=== PATIENT | female | born 1985 | race Caucasian/White ===

== ENCOUNTER 2018-04-11 22:33 | Inpatient (IN) | payer SELFPAY ==
[~2018-04-11] VITALS: Ht 170.2 cm; Wt 72.6 kg
[2018-04-11 22:34] VITALS: BP 132/77
--- NOTE | 2018-04-11 22:34 | NUR ---
PERSON WHO DROPPED PT OFF LISA COLLIER [phone]
--- NOTE | 2018-04-11 22:34 | NUR ---
DROPPED OFF IN LOBBY BY FRIEND. PT WHEEL CHAIR ASSISTED TO BED 10 FROM LOBBY. DIAPHORETIC, A&Ox2 (NAME AND INCIDENT). NURSING STAFF AND DR LARSON AT BEDSIDE FOR EVALUATION.
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
--- NOTE | 2018-04-11 22:41 | NUR ---
ADMITS TO MARIJUANA USE AND METH USE
[2018-04-11] MEDS ORDERED: NACL 0.9% 1,000 ML IV ONE (22:50)
[2018-04-11 23:02] LABS: BASOPHILS % (AUTO) 0.3 % (0.0-2.0); EOSINOPHILS # (AUTO) 0.2 K/uL (0-0.4); EOSINOPHILS % (AUTO) 2.5 % (0.0-4.0); HEMATOCRIT 37.5 % (36-48); HEMOGLOBIN 12.2 g/dL (12.0-16.0); LYMPHOCYTES # (AUTO) 3.5 K/uL (2.5-16.5); LYMPHOCYTES % (AUTO) 44.6 % (20.5-51.1); MEAN CORPUSCULAR HEMOGLOBIN 28 pg (27-31); MEAN CORPUSCULAR HGB CONC 33 g/dL (33-37); MEAN CORPUSCULAR VOLUME 86.9 fL (80-94); MONOCYTES # (AUTO) 0.8 K/uL (0.8-1.0); MONOCYTES % (AUTO) 10.5 % (1.7-9.3); NEUTROPHILS # (AUTO) 3.3 K/uL (1.8-7.7); NEUTROPHILS % (AUTO) 42.1 % (42.2-75.2); PLATELET COUNT (AUTO) 296 K/uL (140-450); RED BLOOD CELL COUNT(AUTO) 4.31 MIL/uL (4.20-5.40); WHITE BLOOD COUNT (AUTO) 7.8 K/uL (4.8-10.8)
[2018-04-11 23:15] LABS: BARBITURATE, URINE NEG. ng/ml (NEG <=200); BENZODIAZEPINE, URINE NEG. ng/mL (NEG <=200); CANNABINOID, URINE POS. ng/mL (NEG <=50); COCAINE, URINE NEG. ng/mL (NEG <=300); OPIATE, URINE NEG. ng/mL (NEG <=2000); PHENCYCLIDINE SCREEN,URINE NEG. ng/mL (NEG <=25)
[2018-04-11 23:17] LABS: ANION GAP 10.9 (8-16); CARBON DIOXIDE 28.3 mmol/L (21-32); CHLORIDE 105 mmol/L (98-107); CREATININE 0.8 mg/dL (0.6-1.3); GFR ARICAN-AMERICAN 108 mL/min (>90); GLUCOSE 146 mg/dL (74-106); POTASSIUM 3.2 mmol/L (3.5-5.1); SODIUM SERUM 141 mmol/L (136-145); UREA NITROGEN, BLOOD 12 mg/dL (7-18)
--- NOTE | 2018-04-11 23:19 | NUR ---
PT SLEEPING COMFORTABLY, AROUSABLE TO TOUCH, REMAINS LETHARGIC. VSS, SPO2 100% ON O2 2L NC, RR 17. ALL NEEDS MET.
[2018-04-11 23:23] LABS: ACETAMINOPHEN < 0.5 ug/ml (10-30); ALBUMIN 4.2 g/dL (3.4-5.0); ASPARTATE AMINOTRANSFERASE 26 U/L (15-37); SALICYLATE < 2.8 mg/dL (2.8-20.0); TOTAL BILIRUBIN 0.3 mg/dL (0.0-1.0)
[2018-04-12] MEDS ORDERED: ZOLPIDEM 5 MG TAB PO PRN (00:25)
[2018-04-12] MEDS ORDERED: ACETAMINOPHEN 325 MG TAB PO PRN (00:25)
[2018-04-12] MEDS ORDERED: ONDANSETRON 4 MG/2 ML VIAL IVP PRN (00:25)
--- NOTE | 2018-04-12 00:35 | NUR ---
PT SLEEPING COMFORTABLY, AROUSABLE TO TOUCH. VSS. ALL NEEDS MET.
[2018-04-12] MEDS ORDERED: LORazepam 2 MG/ML VIAL IVP PRN (00:40)
[2018-04-12 00:47] LABS: APPEARANCE,URINE CLEAR (CLEAR); BILIRUBIN,URINE NEGATIVE (NEGATIVE); BLOOD, URINE NEGATIVE (NEGATIVE); COLOR,URINE YELLOW (YELLOW); LEUKOCYTE ESTERASE ,URINE NEGATIVE (NEGATIVE); NITRITE, URINE NEGATIVE (NEGATIVE); UGLUCOSE NEGATIVE (NEGATIVE)
[2018-04-12 00:59] LABS: PROTHROMBIN TIME 10.8 secs (10.8-13.4)
[2018-04-12] MEDS ORDERED: POTASSIUM CHLORIDE 10 MEQ TABER PO SCH (01:00)
[2018-04-12] MEDS ORDERED: NACL 0.9% 1,000 ML IV SCH (01:00)
--- NOTE | 2018-04-12 01:00 | NUR ---
Patient will be admitted to care of DR. WEST. Admited to TELE. Will go to room 106B. Belongings list completed. Report to SANAZ HALLMAN.
[2018-04-12 01:02] LABS: RBC,URINE 0-5 (RARE) /HPF (0-5); WBC,URINE 0-5 (RARE) /HPF (0-5)
[2018-04-12 01:15] VITALS: BP 154/94
--- NOTE | 2018-04-12 01:15 | NUR ---
RECEIVED PT FROM ER NURSE AXES, PT ALERT AND AWAKE, ABLE TO MAKE NEEDS KNOWN, PT AMBULATED FROM GURNEY TO BED, STEADY GAIT, ON ROOM AIR B/P 154/94, HR 77, RR 16, TEMP 98.2, O2 SAT 100% ROOM AIR, NO C/O PAIN, DR REYES AWARE. PT REQUESTED TO HAVE WATER, OFFERED WATER AND SANDWICH TO EAT. MRSA SCREEN TAKEN, UPDATED BOARD EXPLAINED PLAN OF CARE, WILL CONTINUE TO MONITOR.
[2018-04-12 01:18] LABS: FREE T4 (FREE THYROXINE) 1.03 ng/dL (0.76-1.46); MAGNESIUM 2.2 mg/dL (1.8-2.4); PHOSPHORUS 4.4 mg/dL (2.5-4.9); THYROID STIMULATING HORMONE 0.72 uIU/mL (0.34-3.74)
--- NOTE | 2018-04-12 01:30 | NUR ---
PT REQUESTED SOMETHING TO SLEEP WILL MEDICATE ACCORDING TO DRS ORDER.
--- NOTE | 2018-04-12 01:48 | NUR ---
PT REFUSED AMBIEN STATES "I DONT WANT THAT". WILL RETURN.
--- NOTE | 2018-04-12 02:38 | NUR ---
PT SLEEPING IN BED NO SIGNS OF DISTRESS, WILL CONTINUE TO MONITOR.
[2018-04-12 04:00] VITALS: BP 142/89
--- NOTE | 2018-04-12 04:30 | NUR ---
PT RESTING IN BED NO SIGNS OF DISTRESS. WILL CONTINUE TO MONITOR.
--- NOTE | 2018-04-12 05:34 | NUR ---
SCD AT BEDSIDE PT AMBULATED TO USE RESTROOM, STEADY GAIT, WILL CONTINUE TO MONITOR.
[2018-04-12 07:04] LABS: CHOL/HDL RATIO 1.9 (1-4.5)
--- NOTE | 2018-04-12 07:10 | NUR ---
ENDORSED PT TO DAY SHIFT NURSE, PT STABLE.
--- NOTE | 2018-04-12 07:15 | NUR ---
RECEIVED REPORT FROM DIRECTOR BIOMEDICAL ENGINEERING RN. PT IN STABLE CONDITION, SLEEPING IN BED, AROUSABLE BY VOICE. NO COMPLAINTS OF PAIN OR DISCOMFORT. LUNGS CTA. SKIN INTACT. AMBULATES WITH STEADY GAIT TO BATHROOM. IV SITE PATENT AND RUNNING IVF PER MD ORDERS. ALL SAFETY MEASURES IN PLACE, WILL CONTINUE TO MONITOR.
[2018-04-12 08:00] VITALS: BP 132/86
--- NOTE | 2018-04-12 08:31 | NUR ---
PATIENT HAS BEEN SCREENED AND CATEGORIZED LOW NUTRITION RISK. PATIENT WILL BE SEEN WITHIN 7 DAYS OF ADMISSION. 04/18/[address]
--- NOTE | 2018-04-12 08:54 | NUR ---
PT INFORMED OF DISCHARGE ORDER. PT TO CALL MOTHER TO ARRANGE FOR TRANSPORTATION FROM HOSPITAL AND WILL LET INFORM ME OF TIME. Addendum: 04/12/18 at 0855 by Lucila Green Meng RN PT INFORMED OF DISCHARGE ORDER. PT TO CALL MOTHER TO ARRANGE FOR TRANSPORTATION FROM HOSPITAL AND WILL INFORM ME OF TIME.
[2018-04-12] MEDS ORDERED: DOCUSATE SODIUM 100 MG GELCAP PO SCH (09:00)
--- NOTE | 2018-04-12 09:21 | NUR ---
PT WAS UNABLE TO REACH HER MOTHER. BROUGHT PT'S PHONE TO NURSING STATION TO CHARGE SO THAT PT WILL BE ABLE TO CALL FRIEND TO PICK HER UP FROM THE HOSPITAL.
--- NOTE | 2018-04-12 10:01 | NUR ---
PT IS CALLING MOTHER FOR TRANSPORTATION FROM HOSPITAL.
--- NOTE | 2018-04-12 10:15 | NUR ---
WILL OBTAIN BUS PASS FROM [employer] FOR PATIENT.
--- NOTE | 2018-04-12 10:30 | NUR ---
DISCHARGE PAPERWORK, INCLUDING INSTRUCTIONS TO FOLLOW UP WITH PCP AND HEALTHY LIFESTYLE CHANGES INSTRUCTED BY MD, GIVEN TO PATIENT. PATIENT VERBALIZED COMPLETE UNDERSTANDING OF ALL DISCHARGE TEACHING. ID BANDS REMOVED. IV CANNULA REMOVED WITH MINIMAL BLOOD LOSS AND LUMEN COMPLETELY INTACT. ALL PERSONAL BELONGINGS ARE WITH PT. PT DRESSED AND WALKED OUT OF HOSPITAL WITH STEADY GAIT.
== END 2018-04-12 10:30 | disposition home or self-care (01) | DRG 917 ==
LOC: MED 22:33 → MTU 04-12 00:32
PROVIDERS: ADMIT General Practice; ATTEND General Practice
DX: T43.621A Poisoning by amphetamines, accidental (unintentional), initial encounter (principal); G92 Toxic encephalopathy; T40.7X1A Poisoning by cannabis (derivatives), accidental (unintentional), initial encounter; F41.9 Anxiety disorder, unspecified; F17.210 Nicotine dependence, cigarettes, uncomplicated; I10 Essential (primary) hypertension; E11.9 Type 2 diabetes mellitus without complications; F15.10 Other stimulant abuse, uncomplicated; E87.6 Hypokalemia; E66.3 Overweight; Z68.25 Body mass index [BMI] 25.0-25.9, adult; Z98.891 History of uterine scar from previous surgery; Y92.89 Other specified places as the place of occurrence of the external cause
CPT/HCPCS: 36415; 71045; 80053; 80305; 81001; 81025; 82140; 82150; 83036; 83690; 83735; 83880; 84100; 84439; 84443; 84484; 85025; 85610; 85730; 87081; 93005; 99285; C1758; G0480; G0482; J7030; Q0092